=== PATIENT | male | born 1950 | race Caucasian/White ===

== ENCOUNTER 2018-11-17 11:22 | Emergency (ER) | payer MEDICARE, BC ==
[2018-11-17] MEDS ORDERED: Sodium Chloride 0.9% 1,000 ML IV SCH (11:45)
--- NOTE | 2018-11-17 11:49 | EDM.PDOC ---
ED HPI GENERAL MEDICAL PROBLEM - General Chief Complaint: Gastrointestinal Problem Stated Complaint: PASSING BLOOD Time Seen by Provider: 11/17/18 11:39 Source of Information: Reports: Patient History Limitations: Reports: No Limitations - History of Present Illness INITIAL COMMENTS - FREE TEXT/NARRATIVE: 68-year-old male presents to the ED acute onset of illness early yesterday morning having had developed nausea vomiting and then loose yellow watery diarrhea. Patient estimates that he's had 25 stools since onset of diarrhea. He vomited only 3 times and is no longer vomiting. Able to keep down small quantities of water. Today the stools turned to bright red mucousy stools containing large quantities of blood with no stool. He denies being on any antibiotics in the last 6 weeks. He doesn't believe that he got into any bad food and he has been eating out at any restaurants. Mild diffuse lower abdominal cramping pain with urgency when he needs to defecate. More persistent pain today in the right lower quadrant of the abdomen associated with the bleeding per rectum. He has had severe rigors and chills particularly last evening when he had to go to bed and put extra clothing on. He then developed a fever. He is mildly febrile the time of exam He has had no previous abdominal surgery. Is up every 30 minutes to 45 minutes to have a bowel movement overnight. Feeling a little lightheaded weak and dizzy this morning. Has not checked his blood sugars. Of note he uses an insulin pump for blood sugar control. He's been using insulin for 20 years for diabetes. He states he has no pets particularly any reptiles. Has not eaten any raw eggs. Clinically is presenting with essentially dysentery. Onset: Sudden Onset Date: 11/16/18 Onset Time: 06:30 Duration: Hour(s): Location: Reports: Abdomen (Initially had nausea vomiting 3 and yellow watery diarrhea probably 10-12 times yesterday. Subsequently the diarrhea is turned to bright red mucus the last 3-4 stools and is all blood with no stool. 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: Other (see below) Right Lower Abdominal Pain Score (Numeric/FACES): 6 - Related Data Allergies Allergy/AdvReac Type Severity Reaction Status Date / Time No Known Allergies Allergy Verified 11/17/18 11:34 Home Meds: Home Meds FLUoxetine [PROzac] 10 mg PO DAILY 11/17/18 [History] Insulin Lispro [Humalog] 100 unit SQ ASDIRECTED 11/17/18 [History] Rosuvastatin [Crestor] 10 mg PO DAILY 11/17/18 [History] Valsartan/Hydrochlorothiazide [Valsartan-Hctz 160-12.5 mg Tab] 1 each PO DAILY 11/17/18 [History] amLODIPine [Norvasc] 5 mg PO DAILY 11/17/18 [History] Past Medical History Cardiovascular History: Reports: High Cholesterol, Hypertension Psychiatric History: Reports: Depression Endocrine/Metabolic History: Reports: Diabetes, Type II (He's actually a type 1.5 diabetic. Developed this at age [age] years ago. Been using insulin since time of diagnosis. Currently on insulin pump. Has not checked his sugars today.) Social & Family History - Tobacco Use Smoking Status *Q: Never Smoker - Alcohol Use Days Per Week of Alcohol Use: 7 Number of Drinks Per Day: 2 Total Drinks Per Week: 14 - Recreational Drug Use Recreational Drug Use: No - Living Situation & Occupation Living situation: Reports: Occupation: Employed [employer] [facility] - Review of Systems Review Of Systems: See Below Constitutional: Reports: Fever, Chills, Malaise, Weakness, Fatigue, Decreased Appetite, Weight Loss HEENT: Reports: Glasses Respiratory: Reports: No Symptoms. Denies: Shortness of Breath, Wheezing, Pleuritic Chest Pain, Cough, Sputum Cardiovascular: Reports: Blood Pressure Problem, Lightheadedness. Denies: Chest Pain, Claudication, Dyspnea on Exertion, Edema, Orthopnea (On blood pressure medications he did not take them today), Palpitations Endocrine: Reports: Fatigue GI/Abdominal: Reports: Abdominal Pain (Diffuse right lower quadrant abdominal pain worse with movement coughing or even riding in the vehicle.), Diarrhea ( Intermittent diffuse lower abdominal cramping pain with a sense of urgency before diarrhea occurs.), Melena, Mucous in Stool (Last 3 bowel months have been here bright red blood with mucus.), Nausea (Nausea and vomiting started yesterday has not vomited today.), Vomiting : Reports: Other Musculoskeletal: Reports: No Symptoms Skin: Reports: No Symptoms Neurological: Reports: Dizziness (With standing), Weakness Psychiatric: Reports: No Symptoms Hematologic/Lymphatic: Reports: No Symptoms ED EXAM, GI/ABD - Physical Exam Exam: See Below Exam Limited By: No Limitations General Appearance: Alert, WD/WN, No Apparent Distress, Other (He does feel warm to palpation.) Eyes: Bilateral: Normal Appearance (No scleral icterus) Throat/Mouth: Other Head: Atraumatic (Tongue is mildly dry), Normocephalic Neck: Normal Inspection, Supple, Non-Tender, Full Range of Motion. No: Lymphadenopathy (L), Lymphadenopathy (R) Respiratory/Chest: No Respiratory Distress, Lungs Clear, Normal Breath Sounds, No Accessory Muscle Use, Chest Non-Tender Cardiovascular: Normal Peripheral Pulses, Regular Rate, Rhythm, No Edema, No Gallop, No Murmur, No Rub GI/Abdominal Exam: Soft, No Organomegaly, No Distention, No Mass, Tender ( Patient is very tender to palpation right lower quadrant of the abdomen with guarding and mild rebound. This is over McBurney's point.), Abnormal Bowel Sounds (Follow sounds are hyperactive particularly in the right lower quadrant.) , Other (No surgical scars) (Male) Exam: No Hernia Back Exam: Normal Inspection, Full Range of Motion. No: CVA Tenderness (L), CVA Tenderness (R) Extremities: Normal Inspection, Normal Range of Motion, Non-Tender, No Pedal Edema, Normal Capillary Refill Neurological: Alert, Oriented, CN II-XII Intact, Normal Cognition Psychiatric: Normal Affect, Normal Mood Skin Exam: Warm, Dry, Intact, Normal Color, No Rash EKG INTERPRETATION EKG Date: 11/17/18 Time: 11:56 Rhythm: NSR Rate (Beats/Min): 87 [place]: Normal P-Wave: Enlarged QRS: Other (Left atrial hypertrophy pattern early R-wave transition considers possible septal hypertrophy pattern. Slightly decreased voltage in the limb leads.) ST-T: Other (Nonspecific T-wave flattening in aVL.) QT: Prolonged EKG Interpretation Comments: Borderline ECG Course - Vital Signs Last Recorded V/S: Last Vital Signs Temp 36.0 C 11/17/18 11:32 Pulse 89 11/17/18 11:32 Resp 16 11/17/18 11:32 BP 140/81 11/17/18 11:32 Pulse Ox 95 11/17/18 11:32 Orthostatic Blood Pressure [ 125/74 Standing] Orthostatic Blood Pressure [ 146/81 Supine] - Orders/Labs/Meds Orders: Active Orders 24 hr Category Date Time Status EKG Documentation Completion [RC] STAT Care 11/17/18 11:40 Active Orthostatic Vital Signs [RC] ASDIRECTED Care 11/17/18 11:40 Active Abdomen Pelvis wo Cont [CT] Stat Exams 11/17/18 11:57 Taken CULTURE BLOOD [BC] Stat Lab 11/17/18 12:30 Received CULTURE BLOOD [BC] Stat Lab 11/17/18 12:40 Received CULTURE STOOL + SHIGATOX [RM] Stat Lab 11/17/18 12:40 Received PATIENT RETYPE [BBK] Routine Lab 11/17/18 11:48 Received Sodium Chloride 0.9% [Normal Saline] 1,000 ml Med 11/17/18 11:45 Active IV ASDIRECTED Blood Culture x2 Reflex Set [OM.PC] Stat Oth 11/17/18 11:41 Ordered Isolation [COMM] Stat Oth 11/17/18 11:56 Ordered Medication Orders Sodium Chloride (Normal Saline) 1,000 mls @ 250 mls/hr IV ASDIRECTED ALBERT Last Admin: 11/17/18 11:44 Dose: 250 mls/hr Labs: Laboratory Tests 11/17/18 11/17/18 11/17/18 Range/Units 11:48 11:48 11:48 WBC 14.08 H (4.23-9.07) K/mm3 RBC 4.90 (4.63-6.08) M/mm3 Hgb 14.2 (13.7-17.5) gm/L Hct 42.1 (40.1-51.0) % MCV 85.9 (79.0-92.2) fl MCH 29.0 (25.7-32.2) pg MCHC 33.7 (32.2-35.5) g/dl RDW Std Deviation 42.7 (35.1-43.9) fL Plt Count 193 (163-337) K/mm3 MPV 11.1 (9.4-12.3) fl Neutrophils % (Manual) 89 H (40-60) % Band Neutrophils % 1 (0-10) % Lymphocytes % (Manual) 7 L (20-40) % Atypical Lymphs % 0 % Monocytes % (Manual) 2 (2-10) % Eosinophils % (Manual) 1 (0.8-7.0) % Basophils % (Manual) 0 L (0.2-1.2) Platelet Estimate Adequate RBC Morph Comment Normal ESR (0-15) mm/hr PT 10.9 (9.5-12.1) SECONDS INR 1.00 APTT 31 (24-31) SECONDS Sodium 130 L (136-145) mEq/L Potassium 3.5 (3.5-5.1) mEq/L Chloride 96 L (98-107) mEq/L Carbon Dioxide 22 (21-32) mEq/L Anion Gap 15.5 H (5-15) BUN 25 H (7-18) mg/dL Creatinine 1.2 (0.7-1.3) mg/dL Est Cr Clr Drug Dosing 68.46 mL/min Estimated GFR (MDRD) 60 (>60) mL/min BUN/Creatinine Ratio 20.8 H (14-18) Glucose 184 H (80-115) mg/dL Lactic Acid (0.4-2.0) mmol/L Calcium 9.0 (8.5-10.1) mg/dL Magnesium 1.7 L (1.8-2.4) mg/dl Total Bilirubin 1.9 H (0.2-1.0) mg/dL AST 312 H (15-37) U/L ALT 285 H (16-63) U/L Alkaline Phosphatase 78 (46-116) U/L C-Reactive Protein (<1.0) mg/dL NT-Pro-B Natriuret Pep (0-125) pg/mL Total Protein 6.9 (6.4-8.2) g/dl Albumin 3.3 L (3.4-5.0) g/dl Globulin 3.6 gm/dL Albumin/Globulin Ratio 0.9 L (1-2) Ketones (0.0-0.3) mM C.difficile 027-NAP1-B1 C. difficile Tox (PCR) Blood Type Gel Antibody Screen 11/17/18 11/17/18 11/17/18 Range/Units 11:48 11:48 11:48 WBC (4.23-9.07) K/mm3 RBC (4.63-6.08) M/mm3 Hgb (13.7-17.5) gm/L Hct (40.1-51.0) % MCV (79.0-92.2) fl MCH (25.7-32.2) pg MCHC (32.2-35.5) g/dl RDW Std Deviation (35.1-43.9) fL Plt Count (163-337) K/mm3 MPV (9.4-12.3) fl Neutrophils % (Manual) (40-60) % Band Neutrophils % (0-10) % Lymphocytes % (Manual) (20-40) % Atypical Lymphs % % Monocytes % (Manual) (2-10) % Eosinophils % (Manual) (0.8-7.0) % Basophils % (Manual) (0.2-1.2) Platelet Estimate RBC Morph Comment ESR 14 (0-15) mm/hr PT (9.5-12.1) SECONDS INR APTT (24-31) SECONDS Sodium (136-145) mEq/L Potassium (3.5-5.1) mEq/L Chloride (98-107) mEq/L Carbon Dioxide (21-32) mEq/L Anion Gap (5-15) BUN (7-18) mg/dL Creatinine (0.7-1.3) mg/dL Est Cr Clr Drug Dosing mL/min Estimated GFR (MDRD) (>60) mL/min BUN/Creatinine Ratio (14-18) Glucose (80-115) mg/dL Lactic Acid (0.4-2.0) mmol/L Calcium (8.5-10.1) mg/dL Magnesium (1.8-2.4) mg/dl Total Bilirubin (0.2-1.0) mg/dL AST (15-37) U/L ALT (16-63) U/L Alkaline Phosphatase (46-116) U/L C-Reactive Protein (<1.0) mg/dL NT-Pro-B Natriuret Pep 207 H (0-125) pg/mL Total Protein (6.4-8.2) g/dl Albumin (3.4-5.0) g/dl Globulin gm/dL Albumin/Globulin Ratio (1-2) Ketones (0.0-0.3) mM C.difficile 027-NAP1-B1 C. difficile Tox (PCR) Blood Type A POSITIVE Gel Antibody Screen Negative 11/17/18 11/17/18 11/17/18 Range/Units 11:48 11:48 12:30 WBC (4.23-9.07) K/mm3 RBC (4.63-6.08) M/mm3 Hgb (13.7-17.5) gm/L Hct (40.1-51.0) % MCV (79.0-92.2) fl MCH (25.7-32.2) pg MCHC (32.2-35.5) g/dl RDW Std Deviation (35.1-43.9) fL Plt Count (163-337) K/mm3 MPV (9.4-12.3) fl Neutrophils % (Manual) (40-60) % Band Neutrophils % (0-10) % Lymphocytes % (Manual) (20-40) % Atypical Lymphs % % Monocytes % (Manual) (2-10) % Eosinophils % (Manual) (0.8-7.0) % Basophils % (Manual) (0.2-1.2) Platelet Estimate RBC Morph Comment ESR (0-15) mm/hr PT (9.5-12.1) SECONDS INR APTT (24-31) SECONDS Sodium (136-145) mEq/L Potassium (3.5-5.1) mEq/L Chloride (98-107) mEq/L Carbon Dioxide (21-32) mEq/L Anion Gap (5-15) BUN (7-18) mg/dL Creatinine (0.7-1.3) mg/dL Est Cr Clr Drug Dosing mL/min Estimated GFR (MDRD) (>60) mL/min BUN/Creatinine Ratio (14-18) Glucose (80-115) mg/dL Lactic Acid 1.0 (0.4-2.0) mmol/L Calcium (8.5-10.1) mg/dL Magnesium (1.8-2.4) mg/dl Total Bilirubin (0.2-1.0) mg/dL AST (15-37) U/L ALT (16-63) U/L Alkaline Phosphatase (46-116) U/L C-Reactive Protein 12.1 H* (<1.0) mg/dL NT-Pro-B Natriuret Pep (0-125) pg/mL Total Protein (6.4-8.2) g/dl Albumin (3.4-5.0) g/dl Globulin gm/dL Albumin/Globulin Ratio (1-2) Ketones 0.4 (0.0-0.3) mM C.difficile 027-NAP1-B1 C. difficile Tox (PCR) Blood Type Gel Antibody Screen 11/17/18 Range/Units 12:40 WBC (4.23-9.07) K/mm3 RBC (4.63-6.08) M/mm3 Hgb (13.7-17.5) gm/L Hct (40.1-51.0) % MCV (79.0-92.2) fl MCH (25.7-32.2) pg MCHC (32.2-35.5) g/dl RDW Std Deviation (35.1-43.9) fL Plt Count (163-337) K/mm3 MPV (9.4-12.3) fl Neutrophils % (Manual) (40-60) % Band Neutrophils % (0-10) % Lymphocytes % (Manual) (20-40) % Atypical Lymphs % % Monocytes % (Manual) (2-10) % Eosinophils % (Manual) (0.8-7.0) % Basophils % (Manual) (0.2-1.2) Platelet Estimate RBC Morph Comment ESR (0-15) mm/hr PT (9.5-12.1) SECONDS INR APTT (24-31) SECONDS Sodium (136-145) mEq/L Potassium (3.5-5.1) mEq/L Chloride (98-107) mEq/L Carbon Dioxide (21-32) mEq/L Anion Gap (5-15) BUN (7-18) mg/dL Creatinine (0.7-1.3) mg/dL Est Cr Clr Drug Dosing mL/min Estimated GFR (MDRD) (>60) mL/min BUN/Creatinine Ratio (14-18) Glucose (80-115) mg/dL Lactic Acid (0.4-2.0) mmol/L Calcium (8.5-10.1) mg/dL Magnesium (1.8-2.4) mg/dl Total Bilirubin (0.2-1.0) mg/dL AST (15-37) U/L ALT (16-63) U/L Alkaline Phosphatase (46-116) U/L C-Reactive Protein (<1.0) mg/dL NT-Pro-B Natriuret Pep (0-125) pg/mL Total Protein (6.4-8.2) g/dl Albumin (3.4-5.0) g/dl Globulin gm/dL Albumin/Globulin Ratio (1-2) Ketones (0.0-0.3) mM C.difficile 027-NAP1-B1 Presumptive negative C. difficile Tox (PCR) Negative Blood Type Gel Antibody Screen Meds: Medications Generic Name Dose Route Start Last Admin Trade Name Freq PRN Reason Stop Dose Admin Sodium Chloride 1,000 mls @ 250 mls/hr 11/17/18 11:45 11/17/18 11:44 Normal Saline IV 250 mls/hr ASDIRECTED ALBERT Administration Discontinued Medications Generic Name Dose Route Start Last Admin Trade Name Freq PRN Reason Stop Dose Admin Hydromorphone HCl 0.5 mg 11/17/18 12:27 11/17/18 12:45 Dilaudid IVPUSH 11/17/18 12:28 0.5 mg ONETIME ONE Administration Levofloxacin/Dextrose 750 mg/ 150 mls @ 100 mls/hr 11/17/18 14:17 11/17/18 14 :25 Premix IV 11/17/18 15:46 100 mls/hr ONETIME ONE Administration Metronidazole 500 mg/ Premix 100 mls @ 100 mls/hr 11/17/18 14:42 11/17/18 14: 47 IV 11/17/18 15:41 100 mls/hr ONETIME ONE Administration Ondansetron HCl 4 mg 11/17/18 12:27 11/17/18 12:45 Zofran IVPUSH 11/17/18 12:28 4 mg ONETIME ONE Administration - Radiology Interpretation Free Text/Narrative:: 68-year-old male presents to the ED with acute onset of gastroenteritis illness with nausea and vomiting 3 of bilious material yesterday morning and then development of yellow watery diarrhea almost every 30 minutes. Today he has developed much more right lower quadrant abdominal pain with associated intermittent lower abdominal cramping pain with a strong sense of urgency before bowel movement. The last 3 bowel movements this morning contained nothing but blood and mucus. He had associated fever chills and rigors last night and a bit this morning as well. He is an insulin-dependent diabetic controlled with an insulin pump. He has not checked his sugars this morning. He is mildly orthostatic on examination. He is very tender to palpation over McBurney's point right lower quadrant of the abdomen. Medically is presenting like a dysentery patient but seems to have a significant involvement of the cecum or terminal ileum. He has not been on any antibiotics in the last 6 weeks. Diarrhea pattern is highly suggestive of a bacterial infection process. Especially with associated fever and chills. He is mildly febrile at this time I examined blood cultures will be done. BP is 150/81 with sats of 100%. Patient will have CT of the abdomen with oral contrast only since he is dehydrated and his renal function will not be that good after 20 years of diabetes. IV contrast will not be utilized . Stools will be collected for culture and sensitivity and C. dffcile. - Re-Assessments/Exams Free Text/Narrative Re-Assessment/Exam: 11/17/18 12:57 White count is elevated at 14.08 with 89% neutrophils and 1% band cells. Hemoglobin is 14.2 with hematocrit of 42.1. Platelet count is 193, 000. PT is 10.9 with an INR 1.00 PTT is 31. Sodium is low at 1:30. Potassium low -normal at 3.5. Chloride is 96. Bicarbonate is 22. Anion gap is 15.5. BUN is 25 with a creatinine of 1.2. Estimated GFR is 60. Glucose is 184. Calcium is 9.0. Magnesium slightly low at 1.7. Total bilirubin elevated at 1.9. AST is 312 with an ALT of 285. Alk phosphatase is 78 therefore he has an unexplained transaminase anemia. No real biliary tree obstruction. BNP is 207 slightly elevated. Total protein 6.9. Serum ketones 0.4. Lactic acid is 1.0. 11/17/18 13:02 patient did have a another stool while in the department and cultures were obtained. It did contain a fair amount of bright red blood. He denies any pain with defecation. He'll be due for CT of the abdomen within the next 15 minutes or so. He states pain is much better after small dose of Dilaudid. 11/17/18 13:37 CT of the abdomen and pelvis performed with oral contrast only has been completed. Patient does have a small hiatal hernia that does contain contrast. Visualized portions of the lower lung peck are clear. Liver appears to be homogeneous without any intrahepatic dilatation. All bladder does not contain any calcified gallstones. Pancreas is very atrophic. Spleen is normal. Stomach appears to be normal. Both kidneys are normal shape and size and no sign of urinary tract obstruction. He has one small stone in the right renal parenchyma and 2 small stones in the left renal parenchyma. These are less than 1.5 mm. Contrast filled small bowel and just started to feel the cecum. The appendix appears to be visualized and does not appear to be dilated. There is however some inflammation or inflammatory stranding around the inferior portion of the cecum suggesting seek-itis. No free fluid present in the pelvis. I will await formal reading by radiology. 11/17/18 14:17 the microbiology report is now back suggesting that there are moderate white blood cells present in the stool sample. C. difficile is pending. I'm also awaiting final radiology report on his CT abdomen and pelvis. 11/17/18 14:19 Clostridium difficile is presumed negative..V.rad radiology report is now available. She states that there is seen distally in the liver worrisome for portal venous air. All bladder bile ducts otherwise appear normal with no calcified stones. Diffuse pancreatic atrophy is we appreciated. No splenomegaly the adrenals show no new abnormalities small calculi within the left renal parenchyma. She appreciates focal bowel wall thickening in the right colon in multiple locations on images #2: 35 and #2: 55. Bowel wall thickening in the transverse colon to; 25 as well. These findings are very worrisome for ischemic bowel. There is diverticulosis of the rectosigmoid without any evidence of diverticulitis. No evidence of appendicitis. Distended bladder. Prostate is enlarge greater than 5 cm. She also appreciates their in recannulized umbilical vein on image 2: 15. Due to the potential for lethal outcome from ischemic bowel I will ask our local surgeon Dr. Ledbetter to see this patient in consultation and review his CT and get his opinion. In the meantime I also hang Flagyl 500 mg IV with the Levaquin. Chances are he will have to go to a larger hospital as if he requires surgery he will be in the hospital for a very lengthy period of time. 11/17/18 14:54 Dr. Ledbetter [facility] surgeon has seen the patient in the ED in consultation. Patient has been made well aware of the diagnosis and its potential lethal complications from potential ischemic bowel. He understands the potential severity and has made a decision that he would prefer to return to [facility] his home for definitive care. He will finish up Levaquin and Flagyl IV. Patient is made a decision to travel back to [place], [place] for definitive surgical management and care locally. He will try and make flight arrangements from [place] to [place] this afternoon and then fly directly back into [place] which apparently is only 35 minute plain trip from [place]. I will put his CT examination on a disc for him. Copies of the CT report , ECG and his chart will be given to the patient to give to his physician when he reaches [place]. Departure - Departure Time of Disposition: 16:17 Disposition: Home, Self-Care 01 Condition: Serious Clinical Impression: Bloody diarrhea, Acute ischemia of large intestine - Discharge Information *PRESCRIPTION DRUG MONITORING PROGRAM REVIEWED*: Not Applicable *COPY OF PRESCRIPTION DRUG MONITORING REPORT IN PATIENT ALESHA: Not Applicable Instructions: Ischemic Colitis Referrals: PCP,None [Primary Care Provider] - Forms: ED Department Discharge Additional Instructions: Evaluation in the emergency room today in regards to development of acute onset of vomiting yesterday morning followed by development of watery diarrhea which is thus turned to frankly bloody mucus diarrhea 4. Associated development of diffuse right lower quadrant and right cass-abdominal pain. Low-grade fever appreciated on examination. Lab tests reveal a mildly elevated white count with a left shift suggesting an infective process. CT scan of the abdomen was done to see if it would shed light on the cause of the right lower quadrant abdominal pain and bloody diarrhea. Radiologist's read to her CT report believes that there is areas of your large: On the right side that are developing lack of blood supply which we call ischemia. The exact cause of this is unclear but is usually due to partial occlusion of the arteries that supply the bowel with blood supply and nutrition. There is also some suggestion of air in the portal vein which delivers blood supply from the bowel back to the heart and lungs. There is also seen in the liver worrisome for portal venous air. I will come surgeon Dr. Stan Ledbetter did see you in consultation in the emergency department as well and confirms suspicion of ischemic colitis. You have made an informed decision to travel back to [facility] you're home for definitive medical and/or surgical management. You did receive antibiotics in the emergency room Levaquin 750 mg and Flagyl 500 mg IV and a liter of fluid for rehydration purposes. Copies of your CT scan your history and physical and labs and ECG are provided to to provide your physician when you reach home. You have been made aware of the potential lethality of skin make bowel syndrome. - My Orders Last 24 Hours: My Active Orders 11/17/18 11:40 EKG Documentation Completion [RC] STAT Orthostatic Vital Signs [RC] ASDIRECTED 11/17/18 11:41 Blood Culture x2 Reflex Set [OM.PC] Stat 11/17/18 11:45 Sodium Chloride 0.9% [Normal Saline] 1,000 ml IV ASDIRECTED 11/17/18 11:48 PATIENT RETYPE [BBK] Routine 11/17/18 11:56 Isolation [COMM] Stat 11/17/18 11:57 Abdomen Pelvis wo Cont [CT] Stat 11/17/18 12:30 CULTURE BLOOD [BC] Stat 11/17/18 12:40 CULTURE BLOOD [BC] Stat CULTURE STOOL + SHIGATOX [RM] Stat - Assessment/Plan Last 24 Hours: My Active Orders 11/17/18 11:40 EKG Documentation Completion [RC] STAT Orthostatic Vital Signs [RC] ASDIRECTED 11/17/18 11:41 Blood Culture x2 Reflex Set [OM.PC] Stat 11/17/18 11:45 Sodium Chloride 0.9% [Normal Saline] 1,000 ml IV ASDIRECTED 11/17/18 11:48 PATIENT RETYPE [BBK] Routine 11/17/18 11:56 Isolation [COMM] Stat 11/17/18 11:57 Abdomen Pelvis wo Cont [CT] Stat 11/17/18 12:30 CULTURE BLOOD [BC] Stat 11/17/18 12:40 CULTURE BLOOD [BC] Stat CULTURE STOOL + SHIGATOX [RM] Stat
[2018-11-17] MEDS ORDERED: HYDROmorphone 1 MG/ML Syringe IVPUSH ONE (12:27)
[2018-11-17] MEDS ORDERED: Ondansetron 4 MG/2 ML SDV IVPUSH ONE (12:27)
[2018-11-17] MEDS ORDERED: Levofloxacin/Dextrose 5%-Water 750 MG in Premix Bag 1 BAG IV ONE (14:17)
[2018-11-17] MEDS ORDERED: metroNIDAZOLE/Normal Saline 500 MG in Premix Bag 1 BAG IV ONE (14:42)
--- NOTE | 2018-11-17 17:03 | CONS ---
CONSULTING PHYSICIAN: Stan Ledbetter MD DATE OF CONSULTATION: 11/17/2018 The patient was seen in the ED. REASON FOR CONSULTATION: Thickening of the right colon, abdominal pain, bloody bowel movements. HISTORY OF PRESENT ILLNESS: Duncan is a 68-year-old still active male reported to our ED complaining of multiple liquid bowel movements followed by nausea. He said he was having up to 25 stools per day. Today, the stools became bright red blood and mucus. He has had no antibiotic exposures in recent weeks. He has had no prior episodes. He has pain which is generalized, but greatest in the right lower quadrant and right upper quadrant, which is worsened by movement and driving in the car. He also reported rigors yesterday and to this morning. He has had subjective fever which has a waxing and waning course. He reports feeling lightheaded, bit dizzy, which he thought may be related to his blood sugar. However, he is on an insulin pump secondary to type 1 diabetes. He denies any recent consumption of unusual foods. He has no sick contacts. He has had no recent travel history. His symptoms came on rather suddenly. His pain is rated at 7/10 in intensity. It is not improving. PRIOR MEDICAL HISTORY: 1. Diabetes. 2. Hypercholesterolemia. 3. Hypertension. 4. Depression. SURGICAL HISTORY: None. MEDICATIONS: At home, he takes Prozac, Humalog, Crestor, valsartan, hydrochlorothiazide, Norvasc. SOCIAL HISTORY: He is a nonsmoker. He has never smoked. He drinks alcohol daily. He is semiretired, but still works maintenance department manager. He is . REVIEW OF SYSTEMS: Aside from that listed above, denies chest pain, shortness of breath. A 10- system review was otherwise negative. PHYSICAL EXAMINATION: GENERAL: He is alert. He has some mild painful distress. VITAL SIGNS: Temperature 36, pulse 89, respirations 16, blood pressure 140/81, saturating 95% on room air. HEAD AND NECK: Normocephalic, atraumatic. He is anicteric. LUNGS: Clear to auscultation bilaterally. HEART: Regular rate and rhythm. No clicks, murmurs, or rubs. ABDOMEN: Mildly tender diffusely, greatest in the right lower and upper quadrants with guarding and rebound. He is nondistended. He has a normal to percussion. EXTREMITIES: No clubbing, cyanosis, or edema. NEUROLOGIC: Cranial nerves are grossly intact. Sensation and movement are preserved in all 4 extremities. PSYCHIATRIC: He has appropriate affect and demeanor. He has linear thinking. LABORATORY DATA: Labs demonstrate a leukocytosis of 14,500. Lactate is 1. The C diff is negative. He has a left shift in his CBC. AST and ALT are elevated at 312 and 285. Albumin is low at 3.3. I reviewed his CT scan, he has pneumatosis intestinalis of the right colon. He also has air tracking through the recanalized umbilical vein and a significant amount of portal venous air in the liver that is all with a second right colon and transverse colon. This could be consistent with an acute ischemic event of the colon versus an infectious colitis. Regardless, the appearance of the CT is quite concerning. ASSESSMENT: Ischemic colitis versus an infectious etiology and pneumatosis intestinalis or portal venous gas. Recanalized umbilical vein with portal venous air. PLAN: The picture of his CT is quite concerning. He has a high risk of developing peritonitis secondary to perforated viscus, I would recommend transfer of antibiotics. He will certainly be in the hospital for longer than 4-5 days. Given the nature of his disease in fact may need emergent surgery if his condition does not improve. I have explained that his clinical condition may worsen and he may need a higher level of care. He expressed understanding and mentioned to me that he might sign out AMA. I strongly recommend that he stay in the hospital and an accept transfer which would be appropriate in this setting. He again expressed understanding. I have communicated my conversation with Dr. Eng as well. LUIS /[id number]
--- NOTE | 2018-11-18 07:57 | CT ---
CT abdomen and pelvis Technique: Multiple axial sections were obtained from above the dome of the diaphragm inferiorly through the pubic symphysis. Intravenous contrast not utilized. Oral contrast has been given. Findings: Small portion of the visualized lung bases show nothing acute. Intrahepatic air is seen. This air does not appear to be intra-biliary in location and may represent portal venous gas. No focal abnormality is appreciated within the liver. Spleen appears within normal limits. Adrenal glands show no nodule. Pancreas appears within normal limits. Small nonobstructing calculus is noted within the left kidney. Kidneys otherwise have an unremarkable noncontrast appearance. Aorta and iliac vessels show atherosclerotic calcification. Gallbladder contains no calcified gallstones. No retroperitoneal adenopathy is seen. No mesenteric abnormalities are seen. Bowel wall thickening is seen within the cecum and within several other portions of the right colon as well as portion of the transverse colon. No pelvic mass or adenopathy is seen. Prostate gland is slightly enlarged. No free fluid or inflammatory change is seen. Appendix appears normal in size. Impression: 1. Bowel wall thickening within portions of the cecum, right colon and transverse colon. Findings may represent multifocal colitis although ischemia is also within the differential given that there appears to be portal air present within the liver. 2. Enlarged prostate gland. 3. No additional abnormality is appreciated. Diagnostic code #5 I agree with preliminary report from [facility], finalized on 11/17/18, 3:16 PM Central Time
== END 2018-11-17 16:30 | disposition home or self-care (01) ==
LOC: JD.ED 11:22
DX: K55.9 Vascular disorder of intestine, unspecified (principal); K92.1 Melena; I10 Essential (primary) hypertension; E13.9 Other specified diabetes mellitus without complications
CPT/HCPCS: 36415; 74176; 80053; 82009; 83605; 83735; 83880; 85007; 85027; 85610; 85652; 85730; 86140; 86850; 86900; 86901; 87040; 87046; 87493; 89055; 93005; 96361; 96365; 96367; 96375; 99284; J1170; J1956; J2405; J3490; J7040; 87427; 93010; 99285